=== PATIENT | male | born 1935 | race Caucasian/White ===

== ENCOUNTER 2018-08-12 09:08 | Inpatient (IN) | payer OTHER ==
[~2018-08-12] VITALS: Ht 170.2 cm; Wt 92.5 kg
--- NOTE | 2018-08-12 09:19 | NUR ---
PT AMBULATES TO BED 10
--- NOTE | 2018-08-12 09:30 | NUR ---
PATIENT PRESENTS TO ED WITH COMPLAINTS OF ABDOMINAL PAIN AND CONSTIPATION/DIARRHEA ONGOING X 1 YEAR. PATIENT REPORTS HE HAS BEEN DIAGNOSED WITH COLON CANCER BUT HAS NOT SEEN AN ONCOLOGIST AND HAS NOT HAD ANY PROCEDURES DONE SINCE THE DIAGNOSES. PATIENT STATES HE IS IN PAIN BUT CANNOT VERBALIZE A RATING. PATIENT STATES HE IS CUREENTLY CONSTIPATED BUT WILL HAVE SEVERE DIARRHEA ON AND OFF. SKIN IS PINK/WARM/DRY; AAOX4 WITH EVEN AND STEADY GAIT WITH CANE; LUNGS CLEAR BL; HR EVEN AND REGULAR; PT DENIES ANY FEVER, CP, SOB, OR COUGH AT THIS TIME; VSS; PATIENT POSITIONED FOR COMFORT; HOB ELEVATED; BEDRAILS UP X1; BED DOWN. ER MD MADE AWARE OF PT STATUS.
[2018-08-12 09:31] VITALS: BP 131/79
[2018-08-12] MEDS ORDERED: MECL-272 PO (09:56)
[2018-08-12] MEDS ORDERED: PLEC3TAB PO (09:56)
[2018-08-12] MEDS ORDERED: CARB200T4 PO (09:56)
[2018-08-12] MEDS ORDERED: FLUO10CA21 PO (09:56)
[2018-08-12] MEDS ORDERED: DIPH-631 PO (09:56)
[2018-08-12] MEDS ORDERED: FURO-572 PO (09:56)
[2018-08-12] MEDS ORDERED: ACET-2619 PO (09:56)
[2018-08-12] MEDS ORDERED: OMEP20TC12 PO (09:56)
[2018-08-12] MEDS ORDERED: BEN10 PO (09:56)
[2018-08-12] MEDS ORDERED: HYDR25CA1 PO (09:56)
[2018-08-12] MEDS ORDERED: NIFE30TE8 PO (09:56)
[2018-08-12] MEDS ORDERED: NACL 0.9% 1,000 ML IV SCH (10:03)
[2018-08-12] MEDS ORDERED: MORPHINE SULFATE 2 MG/ML SYR IVP ONE (10:05)
[2018-08-12] MEDS ORDERED: ONDANSETRON 4 MG/2 ML VIAL IVP ONE (10:05)
--- NOTE | 2018-08-12 10:13 | NUR ---
PT TAKEN TO CT IN [place]
[2018-08-12 10:35] LABS: BASOPHILS # (AUTO) 0.1 K/uL (0.00-0.22); BASOPHILS % (AUTO) 0.8 % (0.0-2.0); EOSINOPHILS # (AUTO) 1.1 K/uL (0-0.4); EOSINOPHILS % (AUTO) 15.5 % (0.0-4.0); HEMATOCRIT 28.6 % (36-52); HEMOGLOBIN 8.6 g/dL (12.0-18.0); LYMPHOCYTES % (AUTO) 28.2 % (20.5-51.1); MEAN CORPUSCULAR HEMOGLOBIN 20 pg (27-31); MEAN CORPUSCULAR HGB CONC 30 g/dL (33-37); MEAN CORPUSCULAR VOLUME 65.6 fL (80-94); MONOCYTES # (AUTO) 0.6 K/uL (0.8-1.0); MONOCYTES % (AUTO) 8.3 % (1.7-9.3); NEUTROPHILS # (AUTO) 3.3 K/uL (1.8-7.7); NEUTROPHILS % (AUTO) 47.2 % (42.2-75.2); PLATELET COUNT (AUTO) 210 K/uL (140-450); RED BLOOD CELL COUNT(AUTO) 4.37 MIL/uL (4.20-6.10); RED CELL DISTRIBUTION WIDTH 20.2 % (11.6-13.7); WHITE BLOOD COUNT (AUTO) 7.1 K/uL (4.8-10.8)
[2018-08-12 10:50] LABS: PROTHROMBIN TIME 10.4 secs (10.8-13.4)
[2018-08-12 10:53] LABS: ALBUMIN 3.6 g/dL (3.4-5.0); ASPARTATE AMINOTRANSFERASE 23 U/L (15-37); CARBON DIOXIDE 27.7 mmol/L (21-32); CHLORIDE 106 mmol/L (98-107); GLUCOSE 130 mg/dL (74-106); LIPASE 188 U/L (73-393); POTASSIUM 3.7 mmol/L (3.5-5.1); SODIUM SERUM 141 mmol/L (136-145); TOTAL BILIRUBIN 0.4 mg/dL (0.0-1.0); UREA NITROGEN, BLOOD 16 mg/dL (7-18)
--- NOTE | 2018-08-12 11:47 | NUR ---
PT MOVED TO BED 5
[2018-08-12] MEDS ORDERED: MORPHINE SULFATE 4 MG/ML SYR IVP PRN (11:55)
[2018-08-12] MEDS ORDERED: MECLIZINE 25 MG TAB PO PRN (11:55)
[2018-08-12] MEDS ORDERED: DICYCLOMINE 10 MG CAP PO PRN (11:55)
[2018-08-12] MEDS ORDERED: HYDROcodone/APAP 5/325 MG 1 TAB TAB PO PRN (11:55)
[2018-08-12] MEDS ORDERED: DIPHENHYDRAMINE HCL 25 MG PO PRN (11:55)
[2018-08-12] MEDS ORDERED: ALBUTEROL 0.083% 2.5 MG/3 ML NEBU IH PRN (11:55)
[2018-08-12] MEDS ORDERED: ONDANSETRON 4 MG/2 ML VIAL IVP PRN (11:55)
[2018-08-12] MEDS ORDERED: ACETAMINOPHEN 325 MG TAB PO PRN (11:55)
[2018-08-12] MEDS ORDERED: hydrOXYzine PAMOATE 25 MG CAP PO PRN (11:55)
--- NOTE | 2018-08-12 11:55 | NUR ---
PT IS AAOX4; SITTING UP IN BED AT THIS TIME WITH AND SON AT BEDSIDE
[2018-08-12 12:15] LABS: APPEARANCE,URINE CLEAR (CLEAR); BILIRUBIN,URINE NEGATIVE (NEGATIVE); BLOOD, URINE NEGATIVE (NEGATIVE); COLOR,URINE YELLOW (YELLOW); LEUKOCYTE ESTERASE ,URINE NEGATIVE (NEGATIVE); NITRITE, URINE NEGATIVE (NEGATIVE); UGLUCOSE NEGATIVE (NEGATIVE)
--- NOTE | 2018-08-12 12:22 | NUR ---
PT TAKEN TO FLOOR BY PAUL PEDRAZA
--- NOTE | 2018-08-12 12:22 | NUR ---
Patient will be admitted to care of dr. velarde. Admited to med surg. Will go to room 104-b. Belongings list completed. Report to marie desai.
--- NOTE | 2018-08-12 12:25 | NUR ---
PATIENT ARRIVED ON UNIT VIA WHEELCHAIR. PATIENT AMBULATED TO BED ON STEADY GAIT WITH HIS CANE. REPORT RECEIVED FROM BEAD CUTTER, KEILA, AT BEDSIDE FOR CONTINUITY OF CARE. PATIENT ALERT AND AWAKE, JAMAICAN SPEAKING ONLY, SARI AND SON DEBORAH AT BEDSIDE. SON SPEAKS CHINESE. PATIENT HAS LEFT AC 20G IV, PATENT, INTACT, AND ASYMPTOMATIC, SALINE LOCKED. SKIN INTACT, LUNG SOUNDS CLEAR, BOWEL SOUNDS PRESENT. PATIENT DX FOR INTRACTABLE ABDOMINAL PAIN. PATIENT STATES THAT PAIN IS TOLERABLE AT THIS TIME AND NOT REQUESTING FOR ANY PAIN MEDICATIONS. MRSA SCREENING DONE. INITIAL ASSESSMENT DONE. ORIENTED PATIENT, , AND SON TO ROOM, CALL LIGHT, BATHROOM, AND VISITING HOURS. UPDATED BOARD. SAFETY PRECAUTION IN PLACE, CALL LIGHT WITHIN REACH, WILL CONTINUE TO MONITOR PATIENT.
[2018-08-12 12:30] VITALS: BP 120/72
--- NOTE | 2018-08-12 13:05 | NUR ---
PATIENT ON REGULAR DIET. ASKED IF HE WOULD LIKE LUNCH, PATIENT STATED THAT HE DID NOT WANT A BIG MEAL. PATIENT PROVIDED WITH JELLO, PUDDING, JUICE, AND CRACKERS. CARMENZA FROM PHARMACY CALLED, ONE OF PATIENT'S OWN MEDICATION NOT AVAILABLE AT HOSPITAL. PATIENT'S OWN MEDICATION GIVEN TO PHARMACY. INFORMED PATIENT TO REMEMBER THAT HIS MEDICATION IS AT PHARMACY AND TO TAKE IT BACK ONCE HE IS DISCHARGED. PATIENT AND FAMILY MEMBERS VERBALIZED UNDERSTANDING. STICKER PLACED ON CHART. WILL CONTINUE TO MONITOR PATIENT.
--- NOTE | 2018-08-12 13:58 | NUR ---
FORESTRY PILOT TREATMENT INDICATED AT THIS TIME. PATIENT IS BREATHING COMFORTABLY ANS SATURATIONS ON ROOM AIR ARE 100%
--- NOTE | 2018-08-12 15:12 | NUR ---
PATIENT SITTING UP IN BED, NO SIGNS OF DISTRESS OR SOB NOTED ON ROOM AIR. WILL CONTINUE TO MONITOR PATIENT.
[2018-08-12 16:00] VITALS: BP 126/81
--- NOTE | 2018-08-12 16:12 | NUR ---
DR. GARCIA IN TO SEE THE PATIENT. WANTED CONSENT FOR CT OF ABD/PELVIS WITH CONTRAST. CONSENT OBTAINED AFTER EDUCATION GIVEN ABOUT PROCEDURE. SON DEBORAH AND SARI AT BEDSIDE.
--- NOTE | 2018-08-12 18:30 | NUR ---
PT C/O ABD PAIN 5/10, ORDERED PRN MEDICATION GIVEN. PATIENT TOLERATED IT WELL. SON DEBORAH AND SARI AT BEDSIDE. WILL CONTINUE TO MONITOR.
--- NOTE | 2018-08-12 18:50 | NUR ---
PATIENT AMBULATED TO BATHROOM ON STEADY GAIT WITH STANDBY ASSIST WITH . PATIENT VOIDED. SAFETY PRECAUTION IN PLACE, CALL LIGHT WITHIN REACH, WILL CONTINUE TO MONITOR PATIENT.
--- NOTE | 2018-08-12 19:31 | NUR ---
REPORT GIVEN TO MEN'S AND BOYS' CLOTHING SALESPERSON NURSE AT BEDSIDE FOR CONTINUITY OF CARE. PATIENT IN STABLE CONDITION. SON DEBORAH AND SARI AT BEDSIDE.
--- NOTE | 2018-08-12 19:34 | NUR ---
RECEIVED PT IN STABLE CONDITION FROM AM NURSE. AWAKE,ALERT AND ORIENTED X4, UZBEK SPEAKING. WITH FAMILY MEMBERS AT BEDSIDE. MED SURG PT. WITH NO C/O OF ANT DISCOMFORT NOR PAIN NOTED. HAS LT FA #20 ,HL . CLEAR AND PATENT. PLAN OF CARE DISCUSSED AND VERBALIZED UNDERSTANDING. CALL LIGHT PLACED WITHIN EASY REACH. WILL CONTINUE TO MONITOR.
[2018-08-12] MEDS ORDERED: CARBAMAZEPINE 200 MG PO SCH (21:00)
--- NOTE | 2018-08-12 21:30 | NUR ---
MADE ROUNDS. PT SLEEPING. NO S/S OF ANY DISCOMFORT NOTED.
--- NOTE | 2018-08-12 22:00 | NUR ---
CALLED CT AND ABLE TO TALK TO СЕРГЕЙ ORDONEZ TO FOLLOW UP THE CT ABDOMEN PELVIS WITH CONTRAST ,AND CHEST /HEAD BOTH WITH CONTRAST. HE SAID TO BE DONE TOMORROW. WILL PUT PT NPO AFTER MN.
--- NOTE | 2018-08-12 23:10 | NUR ---
@2120 PT INSISTING ON TAKING HIS OWN MEDICATIONS. CALL PHARMACY TO FOLLOW UP WITH HOME MEDICATIONS TO CONTINUE HERE. BUT PT CAN'T WAIT. VERY PERSISTENT. SON AND CAME BACK PT WANTS THEM TO COME AND BRING HIS MEDS. PAGED DR. IRVIN, DR PAL HELMET HAT SWEATBAND PUNCHER. CALL BACK AND MADE AWARE. HE SAID OK THAT PT TAKE HIS OWN MED FOR TONIGHT.
[2018-08-12 23:30] VITALS: BP 142/90
--- NOTE | 2018-08-13 00:30 | NUR ---
PT ASLEEP. NO S/S OF ANY DISTRESS NOTED. WILL CONTINUE TO MONITOR.
--- NOTE | 2018-08-13 01:50 | NUR ---
PT UP TO THE RESTROOM . VOIDED AND HAD A BOWEL MOVEMENT. NO C/O ANY PAIN NOTED.
--- NOTE | 2018-08-13 06:30 | NUR ---
PT JUST GOT UP TO THE RESTROOM. HE SAID HE HAD A BM . NO CO ANY PAIN AT THIS TIME. IV ACCESS ON THE LT FA#20,PATENT .
--- NOTE | 2018-08-13 07:05 | NUR ---
ASSUMED CONTINUITY OF CARE. NO SIGNS AND SYMPTOMS OF ACUTE DISTRESS NOTICED. INITIAL ASSESSMENT DONE. FAMILIARIZED WITH SURROUNDINGS AND KEEP COMFORTABLE ON BED. CALL LIGHT WITHIN REACH.
--- NOTE | 2018-08-13 07:10 | NUR ---
ENDORSED PT IN STABLE CONDITION TO AM NURSE FOR CONTINUITY OF CARE.
[2018-08-13 07:58] LABS: ALBUMIN 3.6 g/dL (3.4-5.0); ANION GAP 11.9 (8-16); ASPARTATE AMINOTRANSFERASE 23 U/L (15-37); CARBON DIOXIDE 27.1 mmol/L (21-32); CHLORIDE 106 mmol/L (98-107); CREATININE 0.9 mg/dL (0.7-1.3); GLUCOSE 79 mg/dL (74-106); SODIUM SERUM 141 mmol/L (136-145); TOTAL BILIRUBIN 0.4 mg/dL (0.0-1.0); UREA NITROGEN, BLOOD 14 mg/dL (7-18)
[2018-08-13 08:00] VITALS: BP 122/63
--- NOTE | 2018-08-13 08:00 | NUR ---
Patient's Plan of Care was discussed and reviewed with JER: PATRICK.
[2018-08-13 08:06] LABS: BASOPHILS # (AUTO) 0.1 K/uL (0.00-0.22); BASOPHILS % (AUTO) 0.9 % (0.0-2.0); EOSINOPHILS # (AUTO) 0.8 K/uL (0-0.4); EOSINOPHILS % (AUTO) 9.6 % (0.0-4.0); HEMOGLOBIN 8.6 g/dL (12.0-18.0); LYMPHOCYTES # (AUTO) 1.9 K/uL (2.0-11.5); LYMPHOCYTES % (AUTO) 24.3 % (20.5-51.1); MEAN CORPUSCULAR HEMOGLOBIN 20 pg (27-31); MEAN CORPUSCULAR HGB CONC 30 g/dL (33-37); MEAN CORPUSCULAR VOLUME 66.4 fL (80-94); MONOCYTES # (AUTO) 0.6 K/uL (0.8-1.0); MONOCYTES % (AUTO) 7.9 % (1.7-9.3); NEUTROPHILS # (AUTO) 4.4 K/uL (1.8-7.7); NEUTROPHILS % (AUTO) 57.3 % (42.2-75.2); PLATELET COUNT (AUTO) 239 K/uL (140-450); RED BLOOD CELL COUNT(AUTO) 4.36 MIL/uL (4.20-6.10); WHITE BLOOD COUNT (AUTO) 7.8 K/uL (4.8-10.8)
[2018-08-13] MEDS: FLUoxetine 10 MG CAP PO SCH (09:00)
[2018-08-13] MEDS ORDERED: NON-FORMULARY ITEM (Omeprazole (Omeprazole) 20 MG) PO SCH (09:00)
[2018-08-13] MEDS: PANTOPRAZOLE 40 MG TABEC PO SCH (09:00)
[2018-08-13] MEDS: PLECANATIDE 3 MG PO SCH (09:00)
--- NOTE | 2018-08-13 09:01 | NUR ---
PATIENT HAS BEEN SCREENED AND CATEGORIZED HIGH NUTRITION RISK. PATIENT WILL BE SEEN WITHIN 1-2 DAYS OF ADMISSION. 08/13/[address]
--- NOTE | 2018-08-13 11:00 | NUR ---
DR. GARCIA CAME AND ASKED IF PT. CT HEAD/CHEST/ABD & PELVIS WITH CONTRAST ARE DONE. INFORMED DR. GARCIA THAT CONSENT FOR CONTRAST ADMINISTRATION HAS TO BE SIGN BY DR. BRANDEE RIVERA WHO ORDER THE PROCEDURE. DR. GARCIA SIGNED CONSENT AND SAID "JUST ASKED INTEGRATION PROJECT MANAGER TO DO IT." INFORMED CHARGE NURSE NURIA CARCAMO.
--- NOTE | 2018-08-13 11:22 | NUR ---
DR. IRVIN CAME, INFORMED PT. HOME MEDICATION CONTINUATION, AND DR. GARCIA SIGNED CONSENT FOR CT HEAD/CHEST/ABD & PELVIS WITH CONTRAST. NO ORDER RECEIVED.
[2018-08-13 12:00] VITALS: BP 118/73
--- NOTE | 2018-08-13 12:17 | NUR ---
08/13/18 RD INITIAL ASSESSMENT COMPLETED PLEASE REFER TO NUTRITION ASSESSMENT UNDER CARE ACTIVITY FOR ESTIMATED NUTRITIONAL NEEDS. 1. CONTINUE REGULAR DIET TOLERATED 2. PROVIDED NUTRITION EDUCATION 3. RD TO FOLLOW-UP 3-5 DAYS, HIGH RISK KATIE CHERRY RD
--- NOTE | 2018-08-13 12:55 | NUR ---
DR. LUNA CAME AND SPOKE TO PT. AND PT. FAMILY MEMBERS ON BEDSIDE.
--- NOTE | 2018-08-13 14:42 | NUR ---
ADMISSION CHART REVIEW DONE FAXED INITIAL REVIEW TO [facility] [phone] PHONE EZEKIEL [phone]
--- NOTE | 2018-08-13 19:12 | NUR ---
BEDSIDE REPORT GIVEN TO GAMAL CARCAMO. IN STABLE CONDITION.
--- NOTE | 2018-08-13 19:13 | NUR ---
REPORT RECEIVED FROM AM NURSE AT BEDSIDE. PT IN STABLE CONDITION. AAOX4. INTRODUCED SELF TO PT AND FAMILY AT BEDSIDE. IV SITE L FA 20G SL. SKIN WARM, DRY, AND INTACT WITH NO OPEN WOUNDS. NO COMPLAINTS OF PAIN. RESPIRATIONS UNLABORED AND WNL. BED LOCKED IN LOW POSITION. CALL FERNANDO WITHIN REACH. SAFETY PRECAUTIONS IN PLACE.
--- NOTE | 2018-08-13 21:00 | NUR ---
FAMILY AT BEDSIDE. NO S/S OF DISTRESS NOTED. PT SITTING UP, AWAKE, ALERT, AND ORIENTED, AND SPEAKING WITH FAMILY.
--- NOTE | 2018-08-13 23:45 | NUR ---
PT SLEEPING COMFORTABLY. VS STABLE. NO S/S OF DISTRESS. RESPIRATIONS WNL AND AND UNLABORED.
[2018-08-14] VITALS: BP 120/67
--- NOTE | 2018-08-14 03:00 | NUR ---
PT AWAKE AND ALERT READING A BOOK. NO S/S OF DISTRESS NOTED.
[2018-08-14 06:30] LABS: BASOPHILS # (AUTO) 0.1 K/uL (0.00-0.22); BASOPHILS % (AUTO) 1.2 % (0.0-2.0); EOSINOPHILS # (AUTO) 1.2 K/uL (0-0.4); HEMATOCRIT 28.6 % (36-52); HEMOGLOBIN 8.4 g/dL (12.0-18.0); LYMPHOCYTES # (AUTO) 2.1 K/uL (2.0-11.5); LYMPHOCYTES % (AUTO) 29.2 % (20.5-51.1); MEAN CORPUSCULAR HEMOGLOBIN 19 pg (27-31); MEAN CORPUSCULAR HGB CONC 30 g/dL (33-37); MEAN CORPUSCULAR VOLUME 65.9 fL (80-94); MONOCYTES # (AUTO) 0.6 K/uL (0.8-1.0); MONOCYTES % (AUTO) 8.9 % (1.7-9.3); NEUTROPHILS # (AUTO) 3.1 K/uL (1.8-7.7); NEUTROPHILS % (AUTO) 43.7 % (42.2-75.2); PLATELET COUNT (AUTO) 218 K/uL (140-450); RED BLOOD CELL COUNT(AUTO) 4.34 MIL/uL (4.20-6.10); RED CELL DISTRIBUTION WIDTH 20.3 % (11.6-13.7); WHITE BLOOD COUNT (AUTO) 7.1 K/uL (4.8-10.8)
--- NOTE | 2018-08-14 07:00 | NUR ---
REPORT GIVEN TO AM NURSE AT BEDSIDE. PT IN STABLE CONDITION.
--- NOTE | 2018-08-14 07:02 | NUR ---
ASSUMED CONTINUITY OF CARE. NO SIGNS AND SYMPTOMS OF ACUTE DISTRESS NOTED. INITIAL ASSESSMENT DONE. KEEP COMFORTABLE ON BED. CALL LIGHT WITHIN REACH.
--- NOTE | 2018-08-14 07:36 | NUR ---
Patient's Plan of Care was discussed and reviewed with AUTOCAD ELECTRICAL DESIGNER: PATRICK SMITH.
[2018-08-14 08:00] VITALS: BP 110/72
[2018-08-14] MEDS: FLUoxetine 10 MG CAP PO SCH (08:49)
[2018-08-14] MEDS: PLECANATIDE 3 MG PO SCH (08:49)
[2018-08-14] MEDS: PANTOPRAZOLE 40 MG TABEC PO SCH (08:50)
[2018-08-14] MEDS ORDERED: carBAMazepine 200 MG TAB PO SCH (09:00)
[2018-08-14] MEDS ORDERED: ATOR10TA PO (11:18)
[2018-08-14] MEDS ORDERED: METO25TE2 PO (11:18)
--- NOTE | 2018-08-14 11:36 | NUR ---
SPOKE WITH DR. LUNA. SHE WANTS THE PATIENT TO GO TO [facility] TOMORROW FOR LEXISCAN. SHE CALLED NUCLEAR MED AT [facility] AND SET UP PROCEDURE FOR 9:30 A.M. AND FOR PT TO BE THERE AT 8:30A.M. I SPOKE WITH EZEKIEL FROM THE [facility] AND SHE SAID TO FAX THE ORDER TO HER AND SHE WOULD GET THE AUTH. I FAXED HER THE ORDER AND ALSO THE ORDER FOR FOLLOW UP WITH [facility]. FAX [phone] PHONE EZEKIEL [phone]
[2018-08-14 12:00] VITALS: BP 122/62
--- NOTE | 2018-08-14 12:00 | NUR ---
VITALS SIGNS STABLE. NO C/O PAIN. WILL MONITOR.
--- NOTE | 2018-08-14 12:15 | NUR ---
DR. LUNA CAME AND SPOKE TO PT. AT BEDSIDE.
--- NOTE | 2018-08-14 12:49 | NUR ---
FAXED CONCURRENT REVIEW TO [facility] [phone] PHONE EZEKIEL [phone] SPOKE WITH EZEKIEL FROM [facility] AND AND INFORMED HER ABOUT THE LEXISCAN AT [facility] AND THE HIGH RISK FOLLOW UP .
--- NOTE | 2018-08-14 13:12 | NUR ---
DR LUNA CALLED AND WANTED ME TO CALL HITESH FROM [facility] , RADIOLOGY. I CALLED HITESH, [phone] AND INFORMED HER THAT EZEKIEL FROM [facility] WAS HANDLING THE AUTH. HITESH ASKED ME TO FAX THE ORDER TO HER, WHICH I DID, FAX TO [phone].
--- NOTE | 2018-08-14 15:35 | NUR ---
HAIR SPINNER -AXEL CAME AND SAID THAT PT. CAN BE D/C HOME NOW AND FOLLOW UP APPOINTMENT WITH [facility] ON Saturday08/19/18 AT 1:30, AND DORETHA AT [facility] TOMORROW 08/15/18 AT 7:30 AM WAS ARRANGED ALREADY. INFORMED CHARGE NURSE NURIA CARCAMO.
--- NOTE | 2018-08-14 15:41 | NUR ---
SPOKE WITH HITESH FROM [facility], SHE SAID SHE SPOKE WITH THE PATIENT'S SON DEBORAH AND INFORMED HIM THAT THE PATIENT HAS TO BE THERE AT 7:30A.M. EZEKIEL FROM [facility] CALLED THE AUTH FOR [facility] IS [id number] AND EZEKIEL WILL CALL [facility] TO GIVE THE AUTH. FOR HIGH RISK CLINIC, THE PATIENT WILL HAVE AN APPOINTMENT WITH DR. HENNESSY ON 08/19/18 AT 1:30P.M. . ADDRESS IS [address] [place] [address]. PHONE [phone]. OANH MILLERAWNING FINISHER NURSE AWARE.
--- NOTE | 2018-08-14 16:45 | NUR ---
EXPLAINED TO PT. AND PT. SON -JOSÉ LUIS ABOUT MD D/C ORDER, D/C INSTRUCTIONS AND TEACHING, MD FOLLOW UP 08/19/18 AT 1:30 PM PHONE NUMBER & ADDRESS GIVEN, PAIN MANAGEMENT TEACHING, DISEASE MANAGEMENT TEACHING, MD PRESCRIPTION LIST EDUCATION AND HOME MEDS CONTINUATION, EXPLAINED INFORMATION ABOUT L[facility]ISCAN AT [facility] TOMORROW 08/15/18 AT 0730 & ADDRESS & PHONE NUMBER PROVIDED. PT., , AND PT. SON -JOSÉ LUIS VERBALIZED UNDERSTANDING.
--- NOTE | 2018-08-14 16:50 | NUR ---
D/C HOME VIA WHEELCHAIR ACCOMPANIED BY PT. AND PT. SON -JOSÉ LUIS. PT. AWAKE, ALERT, AND ORIENTED X4. SPEECH CLEAR. NO C/O PAIN. NO SOB, NOTED. IN STABLE CONDITION. INFORMED CHARGE NURSE NURIA CARCAMO.
== END 2018-08-14 16:50 | disposition home or self-care (01) | DRG 375 ==
LOC: MED 09:08 → MTU 11:54
PROVIDERS: ADMIT Hospitalist; ATTEND Hospitalist
DX: C18.9 Malignant neoplasm of colon, unspecified (principal); K62.5 Hemorrhage of anus and rectum; I50.20 Unspecified systolic (congestive) heart failure; E11.9 Type 2 diabetes mellitus without complications; E66.9 Obesity, unspecified; I11.0 Hypertensive heart disease with heart failure; K21.9 Gastro-esophageal reflux disease without esophagitis; K59.00 Constipation, unspecified; G89.29 Other chronic pain; E78.00 Pure hypercholesterolemia, unspecified; G40.909 Epilepsy, unspecified, not intractable, without status epilepticus; E78.5 Hyperlipidemia, unspecified; R51 Headache; K57.30 Diverticulosis of large intestine without perforation or abscess without bleeding; I25.10 Atherosclerotic heart disease of native coronary artery without angina pectoris; N28.1 Cyst of kidney, acquired; M43.07 Spondylolysis, lumbosacral region; F32.9 Major depressive disorder, single episode, unspecified; Z68.32 Body mass index [BMI] 32.0-32.9, adult; Z87.891 Personal history of nicotine dependence; Z79.899 Other long term (current) drug therapy; Z79.84 Long term (current) use of oral hypoglycemic drugs
CPT/HCPCS: 36415; 70460; 71045; 71260; 80053; 81003; 83690; 84484; 85025; 85610; 85730; 87081; 93005; 96361; 96374; 96375; 99285; J2270; J2405; J7030; Q0092; Q0177; Q9967